=== PATIENT | male | born 1995 | race Caucasian/White ===

== ENCOUNTER 2019-03-30 17:11 | Emergency (ER) | payer OTHER ==
[2019-03-30 18:47] VITALS: BP 133/85
--- NOTE | 2019-03-30 18:48 | Emergency Department Report ---
Blank Doc - Documentation Documentation: Patient c/o penile d/c . No burning with urinating. No bleeding. Concerns for STD Denies abd pain, denies, back pain. Pain to groin Urine
[2019-03-30 19:24] LABS: Bilirubin,Urine NEG (Negative); Blood,Urine NEG (Negative); Color,Urine Yellow (Yellow); Mucus,Urine 3+ /HPF; Protein,Urine <15 mg/dL mg/dL (Negative); Urobilinogen,Urine < 2.0 mg/dL (<2.0)
[2019-03-30] MEDS ORDERED: ZITHROMAX PO ONE (21:28)
[2019-03-30] MEDS ORDERED: XYLOCAINE 1% MPF 5 mL INFILTRATI ONE (21:28)
[2019-03-30] MEDS ORDERED: ROCEPHIN IM ONE (21:28)
--- NOTE | 2019-03-30 21:33 | Emergency Department Report ---
HPI - General Chief Complaint: Urogenital-Male Time Seen by Provider: 03/30/19 18:45 - HPI HPI: Room 20 The patient is a 23-year-old male presenting with chief complaint penile discharge. Patient states he had an episode of sex easily and since 03/28/2019 he's had penile discharge. Patient versus mild dysuria but denies hematuria or fever Location: [See above] Duration: [See above] Quality: [See above] Severity: [See above] Modifying factors: [see above] Context: [see above] Mode of transportation: [not driving] ED Past Medical Hx - Past Medical History Previous Medical History?: No - Surgical History Past Surgical History?: No - Family History Family history: no significant - Social History Smoking Status: Never Smoker Substance Use Type: Alcohol (rarely), Marijuana - Medications Home Medications: Home Medications Medication Instructions Recorded Confirmed Last Taken Type Phenazopyridine [Pyridium] 200 mg PO TID #6 tab 03/30/19 Unknown Rx levoFLOXacin [Levaquin TAB] 500 mg PO QDAY #7 tablet 03/30/19 Unknown Rx ED Review of Systems ROS: Stated complaint: PENIS DISCHARGE Other details as noted in HPI Constitutional: denies: fever Eyes: denies: eye pain ENT: denies: throat pain Respiratory: no symptoms reported Cardiovascular: denies: chest pain Endocrine: no symptoms reported Gastrointestinal: denies: abdominal pain Genitourinary: dysuria, discharge. denies: hematuria Musculoskeletal: denies: back pain Neurological: denies: headache Physical Exam - Physical Exam Vital Signs: Vital Signs 03/30/19 18:45 Temperature 98.7 F Pulse Rate 74 Respiratory 16 Rate Blood Pressure 133/85 O2 Sat by Pulse 98 Oximetry Physical Exam: GENERAL: The patient is well-developed well-nourished male lying on stretcher not appearing to be in acute distress. [] HEENT: Normocephalic. Atraumatic. Extraocular motions are intact. Patient has moist mucous membranes. NECK: Supple. Trachea midline CHEST/LUNGS: Clear to auscultation. There is no respiratory distress noted. HEART/CARDIOVASCULAR: Regular. There is no tachycardia. There is no gallop rub or murmur. ABDOMEN: Abdomen is soft, nontender. Patient has normal bowel sounds. There is no abdominal distention. SKIN: There is no rash. There is no edema. There is no diaphoresis. NEURO: The patient is awake, alert, and oriented. The patient is cooperative. The patient has normal speech and gait. MUSCULOSKELETAL: There is no evidence of acute injury. ED Course Vital Signs 03/30/19 18:45 Temperature 98.7 F Pulse Rate 74 Respiratory 16 Rate Blood Pressure 133/85 O2 Sat by Pulse 98 Oximetry ED Medical Decision Making - Differential Diagnosis urethritis, UTI Critical care attestation.: If time is entered above; I have spent that time in minutes in the direct care of this critically ill patient, excluding procedure time. ED Disposition Clinical Impression: Urethritis, Dysuria Disposition: DC-01 TO HOME OR SELFCARE Is pt being admited?: No Does the pt Need Aspirin: No Condition: Stable Instructions: Nonspecific Urethritis in Men (ED), Safe Sex (ED), Chlamydia Infection (ED), Sexually Transmitted Diseases (ED) Additional Instructions: Return to the emergency department immediately should you develop worsening s ymptoms, fever, inability to tolerate food or liquid or any other concerns. Prescriptions: levoFLOXacin [Levaquin TAB] 500 mg PO QDAY #7 tablet Phenazopyridine [Pyridium] 200 mg PO TID #6 tab Referrals: STACY SPENCE MD [Primary Care Provider] - 3-5 Days [facility] [Outside] - 3-5 Days Forms: STI Treatment and Prevention Time of Disposition: 21:33
== END 2019-03-30 21:40 | disposition home or self-care (01) ==
LOC: ED 17:11
DX: N34.2 Other urethritis (principal); F12.10 Cannabis abuse, uncomplicated
CPT/HCPCS: 81001; 87086; 87591; 96372; 99283; J0696

== ENCOUNTER 2019-06-08 17:45 | Emergency (ER) | payer SELFPAY ==
--- NOTE | 2019-06-08 18:15 | Event Note ---
ED Screening Note Date of service: 06/08/19 Time: 18:13 ED Screening Note: This is a 23 y.o. M. that presents to the ER with diffuse abdominal pain for 3 days. Reports vomiting and decreased appetite. Current occasional marijuana smoker. This initial assessment/diagnostic orders/clinical plan/treatment(s) is/are subject to change based on patients health status, clinical progression and re- assessment by fellow clinical providers in the ED. Further treatment and workup at subsequent clinical providers discretion. Patient/guardian urged not to elope from the ED as their condition may be serious if not clinically assessed and managed. Initial orders include: Labs
[2019-06-08 19:29] LABS: Bilirubin,Urine NEG (Negative); Blood,Urine NEG (Negative); Color,Urine Amber (Yellow); Mucus,Urine 3+ /HPF; Urobilinogen,Urine < 2.0 mg/dL (<2.0)
[2019-06-08 19:33] LABS: Basophils # (Auto) 0.1 K/mm3 (0.0-0.1); Hematocrit 52.5 % (35.5-45.6); Hemoglobin 17.7 gm/dl (11.8-15.2); Lymphocytes # (Auto) 1.4 K/mm3 (1.2-5.4); Lymphocytes % (Auto) 29.4 % (13.4-35.0); Mean Corpuscular HGB Conc 34 % (32-34); Mean Corpuscular Volume 87 fl (84-94); Monocytes # (Auto) 0.5 K/mm3 (0.0-0.8); Monocytes % (Auto) 10.8 % (0.0-7.3); Platelet Count 161 K/mm3 (140-440); Red Blood Count 6.03 M/mm3 (3.65-5.03); Red Cell Distribution Width 13.4 % (13.2-15.2)
[2019-06-08 19:49] LABS: Alanine Aminotransferase 101 units/L (7-56); Albumin 4.5 g/dL (3.9-5); BUN/Creatinine Ratio 13; Blood Urea Nitrogen 14 mg/dL (9-20); Calcium 9.4 mg/dL (8.4-10.2); Hemolysis Index 15
[2019-06-08] MEDS ORDERED: NACL 0.9% 1000 ML 1,000 ML IV ONE (20:25)
--- NOTE | 2019-06-08 20:58 | Cat Scan Report ---
CT ABDOMEN AND PELVIS WITH CONTRAST INDICATION: Diffuse lower abdominal pain. COMPARISON: No relevant prior imaging study available. TECHNIQUE: Axial, coronal and sagittal CT imaging of the abdomen and pelvis was performed after inje ction of 100 mL Omnipaque [address] scans at this location are performed using CT dose re duction for ALARA by means of automated exposure control. FINDINGS: LOWER CHEST: No significant abnormality. LIVER: A hemangioma is noted along the posterior segment of the right hepatic lobe measuring 1.7 cm o n image 44 of series 2. No additional significant abnormality. BILIARY: No significant abnormality. PANCREAS: No significant abnormality. SPLEEN: No significant abnormality. ADRENALS: No significant abnormality. KIDNEYS AND URETERS: No significant abnormality. GI TRACT: No significant abnormality of the stomach or small bowel. The colon is prominently collapse d without surrounding acute inflammation. Unremarkable appendix. PERITONEUM: No free fluid. No free air. No fluid collection. LYMPH NODES: No significant adenopathy. VASCULATURE: No significant abnormality. URINARY BLADDER: No significant abnormality. REPRODUCTIVE ORGANS: No significant abnormality. ADDITIONAL FINDINGS: None. SKELETAL SYSTEM: No significant abnormality. IMPRESSION: 1. No acute abnormality of the abdomen or pelvis. 2. Additional findings as above. Signer Name: Marco Antonio Macias MD Signed: 06/08/2019 8:54 PM Workstation Name: [id number]
[2019-06-08] MEDS ORDERED: TYLENOL PO ONE (20:59)
--- NOTE | 2019-06-08 21:01 | Emergency Department Report ---
ED N/V/D HPI - General Chief complaint: Abdominal Pain Stated complaint: VOMIT/BACK AND FORTH URINATION Time Seen by Provider: 06/08/19 18:12 Source: patient Mode of arrival: Ambulatory Limitations: No Limitations - History of Present Illness Initial comments: 23-year-old -Northern [place] male presents to the emergency room complaining of nausea vomiting diarrhea and inability to eat for the last 2 days. Patient also complains of left lower quadrant pain does intermittently. Patient reports he may have eaten no questionable food out of a vending machine. Patient shouldn't denies any past medical history currently takes no medications on a daily basis and has no known drug allergies. MD complaint: nausea, vomiting, diarrhea, abdominal pain Onset/Timin -: days(s) Description of Vomiting: food contents Description of Diarrhea: water, mucous Associated Abdominal Pain: Yes Location: diffuse Severity: mild Quality: cramping Consistency: intermittent Improves with: none Worsens with: none Associated Symptoms: loss of appetite, nausea/vomiting - Related Data Previous Rx's Medication Instructions Recorded Last Taken Type Phenazopyridine [Pyridium] 200 mg PO TID #6 tab 03/30/19 Unknown Rx levoFLOXacin [Levaquin TAB] 500 mg PO QDAY #7 tablet 03/30/19 Unknown Rx Loperamide HCl [Imodium A-D] 2 mg PO Q2H PRN #8 capsule 06/08/19 Unknown Rx Ondansetron [Zofran Odt] 4 mg PO Q8HR #8 tab.rapdis 06/08/19 Unknown Rx Allergies Allergy/AdvReac Type Severity Reaction Status Date / Time No Known Allergies Allergy Verified 03/30/19 17:14 ED Review of Systems ROS: Stated complaint: VOMIT/BACK AND FORTH URINATION Other details as noted in HPI ED Past Medical Hx - Past Medical History Previous Medical History?: No - Surgical History Past Surgical History?: No - Social History Smoking Status: Never Smoker Substance Use Type: Marijuana - Medications Home Medications: Home Medications Medication Instructions Recorded Confirmed Last Taken Type Phenazopyridine [Pyridium] 200 mg PO TID #6 tab 03/30/19 Unknown Rx levoFLOXacin [Levaquin TAB] 500 mg PO QDAY #7 tablet 03/30/19 Unknown Rx Loperamide HCl [Imodium A-D] 2 mg PO Q2H PRN #8 capsule 06/08/19 Unknown Rx Ondansetron [Zofran Odt] 4 mg PO Q8HR #8 tab.rapdis 06/08/19 Unknown Rx ED Physical Exam - General Limitations: No Limitations General appearance: alert, in no apparent distress - Head Head exam: Present: atraumatic, normocephalic - Eye Eye exam: Present: normal appearance - ENT ENT exam: Present: mucous membranes moist - Neck Neck exam: Present: normal inspection - Respiratory Respiratory exam: Present: normal lung sounds bilaterally. Absent: respiratory distress - Cardiovascular Cardiovascular Exam: Present: regular rate, normal rhythm. Absent: systolic murmur, diastolic murmur, rubs, gallop - GI/Abdominal GI/Abdominal exam: Present: soft, tenderness (llq), normal bowel sounds. Absent: distended - Rectal Rectal exam: Present: deferred - Neurological Exam Neurological exam: Present: alert, oriented X3, normal gait - Psychiatric Psychiatric exam: Present: normal affect, normal mood - Skin Skin exam: Present: warm, dry, intact, normal color. Absent: rash ED Course Vital Signs 06/08/19 06/08/19 18:13 21:16 Temperature 99.3 F Pulse Rate 91 H Respiratory 18 18 Rate Blood Pressure 127/84 O2 Sat by Pulse 96 Oximetry ED Medical Decision Making - Lab Data Result diagrams: 06/08/19 19:23 06/08/19 Unknown - Radiology Data Radiology results: report reviewed Patient: RENUKA CRONIN MR#: [id number] : 1995 Acct:[id number] Age/Sex: 23 / M ADM Date: 06/08/19 Loc: ED Attending Dr: Ordering Physician: ROSE MARY STRAUSS Date of Service: 06/08/19 Procedure(s): CT abdomen pelvis w con Accession Number(s): [id number] cc: ROSE MARY STRAUSS CT ABDOMEN AND PELVIS WITH CONTRAST INDICATION: Diffuse lower abdominal pain. COMPARISON: No relevant prior imaging study available. TECHNIQUE: Axial, coronal and sagittal CT imaging of the abdomen and pelvis was performed after injection of 100 mL Omnipaque [address] scans at this location are performed using CT dose reduction for ALARA by means of automated exposure control. FINDINGS: LOWER CHEST: No significant abnormality. LIVER: A hemangioma is noted along the posterior segment of the right hepatic lobe measuring 1.7 cm on image 44 of series 2. No additional significant abnormality. BILIARY: No significant abnormality. PANCREAS: No significant abnormality. SPLEEN: No significant abnormality. ADRENALS: No significant abnormality. KIDNEYS AND URETERS: No significant abnormality. GI TRACT: No significant abnormality of the stomach or small bowel. The colon is prominently collapsed without surrounding acute inflammation. Unremarkable appendix. PERITONEUM: No free fluid. No free air. No fluid collection. LYMPH NODES: No significant adenopathy. VASCULATURE: No significant abnormality. URINARY BLADDER: No significant abnormality. REPRODUCTIVE ORGANS: No significant abnormality. ADDITIONAL FINDINGS: None. SKELETAL SYSTEM: No significant abnormality. IMPRESSION: 1. No acute abnormality of the abdomen or pelvis. 2. Additional findings as above. Signer Name: Marco Antonio Macias MD Signed: 06/08/2019 8:54 PM Workstation Name: [id number] Transcribed By: AME Dictated By: Marco Antonio Macias MD Electronically Authenticated By: Marco Antonio Macias MD Signed Date/Time: 06/08/192053 DD/ 50 TD/TT: - Medical Decision Making 23-year-old -[place] male presents to the emergency room complaining of nausea vomiting diarrhea and inability to eat for the last 2 days. Patient also complains of left lower quadrant pain does intermittently. Patient reports he may have eaten no questionable food out of a vending machine. Patient shouldn't denies any past medical history currently takes no medications on a daily basis and has no known drug allergies. Critical care attestation.: If time is entered above; I have spent that time in minutes in the direct care of this critically ill patient, excluding procedure time. ED Disposition Clinical Impression: Viral gastritis Disposition: DC-01 TO HOME OR SELFCARE Is pt being admited?: No Does the pt Need Aspirin: No Condition: Stable Instructions: Gastroenteritis (ED), Acute Nausea and Vomiting (ED) Prescriptions: Loperamide HCl [Imodium A-D] 2 mg PO Q2H PRN #8 capsule PRN Reason: Diarrhea Ondansetron [Zofran Odt] 4 mg PO Q8HR #8 tab.rapdis Referrals: SHELBY CARRILLOCODYSABANA SECA MD MAGALIE [Primary Care Provider] - 3-5 Days Forms: Work/School Release Form(ED)
[2019-06-08 22:13] VITALS: BP 121/72
== END 2019-06-08 22:10 | disposition home or self-care (01) ==
LOC: ED 17:45
DX: K29.70 Gastritis, unspecified, without bleeding (principal); F12.10 Cannabis abuse, uncomplicated
CPT/HCPCS: 36415; 74177; 80053; 81001; 83690; 85025; 96360; 99283; J7030; Q9967

== ENCOUNTER 2020-03-19 19:01 | Emergency (ER) | payer SELFPAY ==
[2020-03-19 19:13] VITALS: BP 126/88
--- NOTE | 2020-03-19 19:16 | Emergency Department Report ---
Chief Complaint: Urogenital-Male Stated Complaint: STD Time Seen by Provider: 03/19/20 19:13 - HPI History of Present Illness: HERE FOR STD TESTING NO SYMPTOMS - ROS Review of Systems: NONE - Exam Vital Signs: Vital Signs 03/19/20 19:10 Temperature 98.5 F Pulse Rate 77 Respiratory 18 Rate Blood Pressure 126/88 O2 Sat by Pulse 100 Oximetry Physical Exam: A/O NAD MSE screening note: Focused history and physical exam performed. Due to findings the following was ordered: Patient discussed with doctor:: JANELLE MICHAELS III ED Disposition for MSE Clinical Impression: Concern about STD in male without diagnosis Disposition: DC-01 TO HOME OR SELFCARE Is pt being admited?: No Does the pt Need Aspirin: No Condition: Stable Additional Instructions: FOLLOW UP [facility] [employer] [address] [place] [address] Referrals: SHAILA RAMIREZ MD [Staff Physician] - 3-5 Days Time of Disposition: 19:15
== END 2020-03-19 20:44 | disposition left against medical advice (07) ==
LOC: ED 19:01
DX: Z71.1 Person with feared health complaint in whom no diagnosis is made (principal); Z53.21 Procedure and treatment not carried out due to patient leaving prior to being seen by health care provider

== ENCOUNTER 2021-09-17 20:16 | Emergency (ER) | payer SELFPAY ==
[2021-09-17] MEDS ORDERED: HYDROcodone/ACETAMINOPHEN 5-325 MG TAB PO ONE (22:51)
[2021-09-17] MEDS ORDERED: ONDANSETRON 4 MG ODT TAB PO ONE (22:51)
[2021-09-17] MEDS ORDERED: IBUPROFEN 600 MG TAB PO ONE (22:51)
--- NOTE | 2021-09-17 23:13 | Emergency Department Report ---
ED General Adult HPI - General Chief complaint: Skin/Abscess/Foreign Body Stated complaint: ABSCESS Source: patient Mode of arrival: Ambulatory Limitations: No Limitations - History of Present Illness Initial comments: Patient is a 25-year-old male with no past medical history presented to the ED with complaint of acute onset persistent painful swollen erythematous mac ulopapular rash on upper abdominal wall for the last 5 days. Patient states that the pain has worsened especially in the last 2 days. Patient states that she is currently on oral doxycycline for suspected chlamydial infection that he has taken for the last 24 hours. Patient however denies fever, chills, nausea, vomiting, dizziness, syncope, sore throat, chest pain or shortness of breath, traumatic injury or fall. MD Complaint: Abscess on abdominal wall with pain -: Sudden, days(s) (5) Location: abdomen Radiation: non-radiation Severity scale (0 -10): 9 Quality: aching, sharp Consistency: constant Improves with: none Worsens with: none Associated Symptoms: rash (Painful swollen erythematous maculopapular rash on upper abdominal wall). denies: confusion, chest pain, cough, diaphoresis, fever/chills, headaches, loss of appetite, malaise, nausea/vomiting, shortness of breath, syncope, weakness Treatments Prior to Arrival: none - Related Data Previous Rx's Medication Instructions Recorded Last Taken Type Phenazopyridine [Pyridium] 200 mg PO TID #6 tab 03/30/19 Unknown Rx levoFLOXacin [Levaquin TAB] 500 mg PO QDAY #7 tablet 03/30/19 Unknown Rx Loperamide HCl [Imodium A-D] 2 mg PO Q2H PRN #8 capsule 06/08/19 Unknown Rx Ondansetron [Zofran Odt] 4 mg PO Q8HR #8 tab.rapdis 06/08/19 Unknown Rx Ibuprofen [Motrin] 800 mg PO Q8HR PRN #30 tablet 09/17/21 Unknown Rx traMADoL [Ultram] 50 mg PO Q6HR PRN #10 tablet 09/17/21 Unknown Rx Allergies Allergy/AdvReac Type Severity Reaction Status Date / Time No Known Allergies Allergy Verified 03/30/19 17:14 ED Review of Systems ROS: Stated complaint: ABSCESS Other details as noted in HPI Constitutional: denies: chills, fever Eyes: denies: eye pain, eye discharge, vision change ENT: denies: ear pain, throat pain Respiratory: denies: cough, shortness of breath, wheezing Cardiovascular: denies: chest pain, palpitations Endocrine: no symptoms reported Gastrointestinal: abdominal pain (Painful upper abdominal wall due to erythematous maculopapular rash). denies: nausea, diarrhea Genitourinary: denies: urgency, dysuria Musculoskeletal: denies: back pain, joint swelling, arthralgia Skin: rash (Painful erythematous maculopapular rash on upper abdominal wall), change in color, pruritus. denies: lesions Neurological: denies: headache, weakness, paresthesias Psychiatric: denies: anxiety, depression Hematological/Lymphatic: denies: easy bleeding, easy bruising ED Past Medical Hx - Past Medical History Previous Medical History?: No - Surgical History Past Surgical History?: No - Social History Smoking Status: Never Smoker Substance Use Type: None - Medications Home Medications: Home Medications Medication Instructions Recorded Confirmed Last Taken Type Phenazopyridine [Pyridium] 200 mg PO TID #6 tab 03/30/19 Unknown Rx levoFLOXacin [Levaquin TAB] 500 mg PO QDAY #7 tablet 03/30/19 Unknown Rx Loperamide HCl [Imodium A-D] 2 mg PO Q2H PRN #8 capsule 06/08/19 Unknown Rx Ondansetron [Zofran Odt] 4 mg PO Q8HR #8 tab.rapdis 06/08/19 Unknown Rx Ibuprofen [Motrin] 800 mg PO Q8HR PRN #30 tablet 09/17/21 Unknown Rx traMADoL [Ultram] 50 mg PO Q6HR PRN #10 tablet 09/17/21 Unknown Rx ED Physical Exam - General Limitations: No Limitations General appearance: alert, in no apparent distress - Head Head exam: Present: atraumatic, normocephalic, normal inspection - Eye Eye exam: Present: normal appearance, PERRL, EOMI Pupils: Present: normal accommodation - ENT ENT exam: Present: normal exam, normal orophraynx, mucous membranes moist, TM's normal bilaterally, normal external ear exam - Neck Neck exam: Present: normal inspection, full ROM - Respiratory Respiratory exam: Present: normal lung sounds bilaterally. Absent: respiratory distress, wheezes, rhonchi, stridor, chest wall tenderness, accessory muscle use, prolonged expiratory - Cardiovascular Cardiovascular Exam: Present: regular rate, normal rhythm, normal heart sounds. Absent: systolic murmur, diastolic murmur, rubs, gallop - GI/Abdominal GI/Abdominal exam: Present: soft, tenderness (Palpable localized upper abdominal wall tenderness due to erythematous maculopapular nonfluctuant rash), normal bowel sounds. Absent: guarding, rebound, hyperactive bowel sounds, hypoactive bowel sounds, mass - Extremities Exam Extremities exam: Present: normal inspection, full ROM, normal capillary refill - Back Exam Back exam: Present: normal inspection, full ROM. Absent: tenderness, CVA tenderness (L), muscle spasm, paraspinal tenderness, vertebral tenderness - Neurological Exam Neurological exam: Present: alert, oriented X3, CN II-XII intact, normal gait, reflexes normal - Psychiatric Psychiatric exam: Present: normal affect, normal mood - Skin Skin exam: Present: warm, dry, intact, rash (Erythematous maculopapular nonfluctuant rash on upper abdominal wall), erythema ED Course Vital Signs 09/17/21 20:18 Temperature 98.9 F Pulse Rate 73 Respiratory 18 Rate Blood Pressure 123/69 [Right] O2 Sat by Pulse 99 Oximetry ED Medical Decision Making - Medical Decision Making This is a 25-year-old male with no past medical history presented to the ED with complaint of acute onset persistent painful swollen erythematous maculopapular rash on upper abdominal wall for the last 5 days. Patient states that the pain has worsened especially in the last 2 days. Patient states that she is currently on oral doxycycline for suspected chlamydial infection that he has taken for the last 24 hours. In the ED, patient is alert and oriented x3 and is not in any distress. Patient was treated for pain in the ED. Patient is already Taking oral antibiotics, doxycycline 100 mg every 12 hours and has taken it for 24 hours. He is scheduled to take this medication for 2 weeks for suspected chlamydia infection. Patient was therefore discharged home on pain medications and advised to continue taking the previously prescribed doxycycline to the end, and to return to the ED immediately if symptoms get worse. Patient was also advised to follow-up with his primary care physician in 7 to 10 days for reevaluation. - Differential Diagnosis Cellulitis; folliculitis; cutaneous abscess Critical care attestation.: If time is entered above; I have spent that time in minutes in the direct care of this critically ill patient, excluding procedure time. ED Disposition Clinical Impression: Acute folliculitis, Cellulitis of abdominal wall Disposition: HOME / SELF CARE / HOMELESS Is pt being admited?: No Does the pt Need Aspirin: No Condition: Stable Instructions: Cellulitis, Adult, [id number] Additional Instructions: Continue taking the previously prescribed antibiotics, doxycycline until the end. Take pain medication as needed with food, drink plenty of fluids and follow-up with your primary care physician in 7 to 10 days for reevaluation. Return to the ED immediately if symptoms get worse. Prescriptions: Ibuprofen [Motrin] 800 mg PO Q8HR PRN #30 tablet PRN Reason: Pain , Severe (7-10) traMADoL [Ultram] 50 mg PO Q6HR PRN #10 tablet PRN Reason: Pain Referrals: [facility] [Provider Group] - 7-10 days Forms: Work/School Release Form(ED) Time of Disposition: 23:14 Print Language: MAORI
[2021-09-18 00:02] VITALS: BP 142/91
== END 2021-09-18 00:05 | disposition home or self-care (01) ==
LOC: ED 20:16
DX: L73.9 Follicular disorder, unspecified (principal); L03.311 Cellulitis of abdominal wall; Z79.899 Other long term (current) drug therapy
CPT/HCPCS: 99282; J3490; Q0162